=== PATIENT | female | born 1960 | race Two or more races ===

== ENCOUNTER 2019-10-06 16:23 | Emergency (ER) | payer OTHER ==
[~2019-10-06] VITALS: Ht 162.6 cm; Wt 72.6 kg
== END 2019-10-06 20:51 | disposition home or self-care (01) ==
LOC: ER 16:23 → EDBD 16:58 → ER 16:58
DX: F06.4 Anxiety disorder due to known physiological condition (principal)

== ENCOUNTER 2021-06-17 08:25 | Emergency (ER) | payer OTHER ==
[~2021-06-17] VITALS: Ht 160 cm; Wt 65.8 kg
[2021-06-17] MEDS ORDERED: NORFLEX100MG PO (12:00)
[2021-06-17] MEDS ORDERED: KETO10TA2 PO (12:00)
== END 2021-06-17 12:16 | disposition home or self-care (01) ==
LOC: ER 08:25
DX: M54.50 Low back pain, unspecified (principal)

== ENCOUNTER 2022-10-29 09:35 | Emergency (ER) | payer OTHER ==
[~2022-10-29] VITALS: Ht 152.4 cm; Wt 64.0 kg
[~2022-10-29 09:35] MED LIST: KETO10TA2 PO; NORFLEX100MG PO
== END 2022-10-29 14:03 | disposition home or self-care (01) ==
LOC: ER 09:35
DX: R10.30 Lower abdominal pain, unspecified (principal); Z88.1 Allergy status to other antibiotic agents